=== PATIENT | female | born 1950 | race Caucasian/White ===

== ENCOUNTER 2019-12-23 10:09 | Inpatient (IN) ==
[~2019-12-23 10:09] MED LIST: Buffered Lidocaine 1% SYRIN 1 ml INTRADERM ONE; Lactated Ringers 1000 ml BAG 1,000 ML IV SCH
[2019-12-23] MEDS ORDERED: Clindamycin 900 MG/D5W BAG 900 MG/50 ML BAG IVPB ONE (10:38)
[2019-12-23] MEDS ORDERED: Dexamethasone IV 4 MG/ML VIAL 1 ml VIAL ONE ×2 (10:38→13:42)
[2019-12-23] MEDS ORDERED: Lidocaine 2% PF 5 ML VIAL ONE ×2 (10:38→13:11)
[2019-12-23] MEDS ORDERED: ROPIVACAINE 5 MG/ML 30 ML BTL (0.5%) ONE (10:38)
[2019-12-23] MEDS ORDERED: fentaNYL 100 mcg/2 ml 50 MCG/ML VIAL ONE ×2 (10:38→16:18)
[2019-12-23] MEDS ORDERED: Midazolam 2 mg/2 ml VIAL 1 mg/ml 2 ml VIAL (2 mg) ONE (10:39)
[2019-12-23] MEDS ORDERED: EPHEDrine (Pressors) 50 MG/ML VIAL ONE (10:39)
[2019-12-23] MEDS ORDERED: Rocuronium 50 mg VIAL 10 mg/ml 5 ml VIAL (50 mg) ONE (13:11)
[2019-12-23] MEDS ORDERED: Etomidate 20 mg/10 ml 2 MG/ML 10 ml VIAL ONE (13:12)
[2019-12-23] MEDS ORDERED: Propofol 10 MG/ML 20 ML BTL ONE ×3 (13:23→15:26)
[2019-12-23] MEDS ORDERED: HYDROmorphone 1 MG/1 ML SYRINGE ONE (13:41)
[2019-12-23] MEDS ORDERED: Ondansetron 4 mg VIAL 2 MG/ML 2 ml VIAL ONE (13:42)
[2019-12-23] MEDS ORDERED: Acetaminophen IV 1 GM/100ML 100 ML ONE (14:06)
[2019-12-23] MEDS ORDERED: Naloxone 0.4 mg VIAL 0.4 mg/ml 1 ml VIAL IV PRN (15:17)
[2019-12-23] MEDS ORDERED: DiMENhydriNATE IV 50 mg/ml 1 ml VIAL IV PUSH PRN (15:17)
[2019-12-23] MEDS ORDERED: oxyCODONE/Acetamin 5/325 mg TAB PO PRN ×2 (15:48)
[2019-12-23] MEDS ORDERED: Ondansetron 4 mg VIAL 2 MG/ML 2 ml VIAL IV PRN (15:48)
[2019-12-23] MEDS ORDERED: Ondansetron ODT 4 mg TAB 4 MG TAB PO PRN (15:48)
[2019-12-23] MEDS ORDERED: Magnesium Hydroxide LIQ 30 ML UDC PO PRN (15:48)
[2019-12-23] MEDS ORDERED: diPHENhydraMINE 25 mg TAB PO PRN (15:48)
[2019-12-23] MEDS ORDERED: diPHENhydraMINE IV 50 MG/ML 1 ml VIAL (BENADRYL) IV PRN (15:48)
[2019-12-23] MEDS ORDERED: Lactulose 30 ml UDC PO PRN (15:48)
[2019-12-23] MEDS: fentaNYL 100 mcg/2 ml 50 MCG/ML VIAL IV PRN ×3 (16:19→16:34)
[2019-12-23] MEDS: Lactated Ringers 1000 ml BAG 1,000 ML IV SCH (18:19)
[2019-12-23 18:46] LABS: Calcium 8.2 mg/dL (8.6-10.3); EGFR Non-African American 122.3 (>60); Potassium 3.8 mmol/L (3.5-5.0)
[2019-12-23] MEDS ORDERED: Scopolamine PATCH Remove NOTE PATCH OFF PRN (20:00)
[2019-12-23] MEDS: Clindamycin 600 MG/D5W BAG 600 MG/50 ML BAG IV SCH (21:31)
[2019-12-23] MEDS ORDERED: Prochlorperazine 5 mg/ml 2 ml VIAL (10 mg) IV ONE (21:53)
[2019-12-23] MEDS ORDERED: NS 0.9% 500 ml BAG 500 ML IV ONE (21:53)
[2019-12-23] MEDS: Magnesium Hydroxide LIQ 30 ML UDC PO SCH (22:12)
[2019-12-23 22:31] LABS: ABS Lymphocytes 0.5 10^3/ul (1.0-4.8); ABS Monocytes 0.7 10^3/ul (0-0.8); ABS Neutrophils 17.3 10^3/ul (1.5-7.7); Hematocrit 34 % (35-47); Hemoglobin 11.9 g/dL (12.0-16.0); Lymphocyte % 2.9 %; Mean Corpuscular HGB Conc 35 g/dL (31-36); Mean Corpuscular Hemoglobin 31 pg (27-31); Mean Corpuscular Volume 89 fL (80-97); Platelet Count 190 10^3/uL (150-450); Red Blood Count 3.85 10^6 /uL (3.70-4.87); Red Cell Distribution Width 13 % (10-15); White Blood Count 18.5 10^3/uL (3.5-10.8)
[2019-12-24] MEDS: Lactated Ringers 1000 ml BAG 1,000 ML IV SCH (04:15)
[2019-12-24] MEDS: Clindamycin 600 MG/D5W BAG 600 MG/50 ML BAG IV SCH ×2 (05:52→13:58)
[2019-12-24 07:15] LABS: Hematocrit 27 % (35-47); Hemoglobin 9.3 g/dL (12.0-16.0); Mean Platelet Volume 8.3 fL (7.4-10.4); Platelet Count 171 10^3/uL (150-450)
[2019-12-24 07:30] LABS: BUN/Creatinine Ratio 22.9 (8-20); Calcium 7.8 mg/dL (8.6-10.3); EGFR African American 155.2 (>60); EGFR Non-African American 128.2 (>60); Potassium 4.4 mmol/L (3.5-5.0)
[2019-12-24] MEDS ORDERED: NS 0.9% 1000 ml BAG 1,000 ML IV ONE (09:33)
[2019-12-24] MEDS: Vitamin THERAPEUTIC TAB PO SCH (09:35)
[2019-12-24] MEDS: Magnesium Hydroxide LIQ 30 ML UDC PO SCH ×2 (09:35→21:13)
[2019-12-24] MEDS: Insulin GLARGINE 100 un/ml 10 ml VIAL SUBCUT SCH (09:36)
[2019-12-24 12:18] LABS: Hematocrit 30 % (35-47); Hemoglobin 10.2 g/dL (12.0-16.0)
[2019-12-25 06:03] LABS: Hematocrit 26 % (35-47); Hemoglobin 8.9 g/dL (12.0-16.0); Mean Platelet Volume 8.1 fL (7.4-10.4); Platelet Count 171 10^3/uL (150-450)
[2019-12-25] MEDS: Insulin GLARGINE 100 un/ml 10 ml VIAL SUBCUT SCH (07:59)
[2019-12-25] MEDS: Vitamin THERAPEUTIC TAB PO SCH (08:58)
[2019-12-25] MEDS: Magnesium Hydroxide LIQ 30 ML UDC PO SCH ×2 (08:58→21:59)
[2019-12-25 10:54] LABS: Hematocrit 25 % (35-47); Hemoglobin 8.7 g/dL (12.0-16.0)
[2019-12-25 12:16] LABS: Mean Corpuscular HGB Conc 33 g/dL (31-36); Mean Corpuscular Hemoglobin 30 pg (27-31); Mean Corpuscular Volume 90 fL (80-97); Red Blood Count 2.96 10^6 /uL (3.70-4.87); Red Cell Distribution Width 13 % (10-15)
[2019-12-25] MEDS ORDERED: Dextrose 50% Syringe 50 ml 25 GM/50 ML SYRINGE IV PUSH PRN (16:49)
[2019-12-25 18:30] LABS: Hematocrit 26 % (35-47); Hemoglobin 8.8 g/dL (12.0-16.0)
[2019-12-25] MEDS ORDERED: Insulin GLARGINE 100 un/ml 10 ml VIAL SUBCUT ONE (23:07)
[2019-12-26 05:45] LABS: Hematocrit 25 % (35-47); Hemoglobin 8.8 g/dL (12.0-16.0); Mean Platelet Volume 7.8 fL (7.4-10.4); Platelet Count 161 10^3/uL (150-450)
[2019-12-26 06:03] LABS: BUN/Creatinine Ratio 14.3 (8-20); Calcium 7.6 mg/dL (8.6-10.3); EGFR Non-African American 149.6 (>60); Potassium 3.3 mmol/L (3.5-5.0)
[2019-12-26 08:21] VITALS: BP 127/54
[2019-12-26] MEDS: Magnesium Hydroxide LIQ 30 ML UDC PO SCH (08:59)
[2019-12-26] MEDS ORDERED: Insulin GLARGINE 100 un/ml 10 ml VIAL SUBCUT SCH (09:00)
[2019-12-26] MEDS: Vitamin THERAPEUTIC TAB PO SCH (09:09)
== END 2019-12-26 11:00 | disposition home or self-care (01) | DRG 470 ==
LOC: OR 10:09 → SSU 15:48
PROVIDERS: ADMIT Orthopaedic Surgery Adult Reconstructive Orthopaedic Surgery; ATTEND Orthopaedic Surgery Adult Reconstructive Orthopaedic Surgery